=== PATIENT | male | born 1935 | race African-American/Black ===

== ENCOUNTER 2018-07-26 09:22 | Observation (INO) ==
[2018-07-26] MEDS ORDERED: SODIUM CHLORIDE 0.9% 1,000 ML IV STA (09:51)
[2018-07-26 10:26] LABS: Basophils # 0.1 10*3/uL (0.0-0.2); Basophils % 0.7 % (0.0-0.8); Eosinophils # 0.2 10*3/uL (0.0-0.87); Eosinophils % 2.5 % (0.00-10.9); Hematocrit 39.7 VOL% (42.0-52.0); Hemoglobin 12.2 GM/DL (14.0-18.0); Immature Granulocytes % 0.4 %; Immature Granulocytes Absolute 0.03 #; Lymphocytes # 1.5 10*3/uL (1.4-4.0); Lymphocytes % 21.1 % (21.2-54.2); Mean Corpuscular HGB Conc 30.7 GM/DL (32-36); Mean Corpuscular Hemoglobin 27 PG (27-34); Mean Corpuscular Volume 86.5 FL (87-102); Mean Platelet Volume 11.2 FL (9.6-12.0); Monocytes # 0.6 10*3/uL (0.11-0.8); Monocytes % 8.3 % (1.7-12.7); Neutrophils # 4.8 10*3/uL (1.4-7.4); Platelet Count 211 T/CUMM (130-400); Red Blood Count 4.59 MC/CUMM (3.8-5.5); Red Cell Distribution Width 13.8 % (9.3-17.3); White Blood Count 7.2 T/CUMM (4-12)
[2018-07-26 10:35] LABS: PT Patient Result 10.8 SECS; Partial Thromboplastin Time 28.7 SECS (0-40)
[2018-07-26 10:45] LABS: Alanine Aminotransferase 17 U/L (16-61); Alkaline Phosphatase 139 U/L (45-117); Aspartate Amino Transferase 17 U/L (0-37); Bilirubin,Total < 0.39 MG/DL (0.2-1.0); Blood Urea Nitrogen 57 MG/DL (7-18); Calcium 8.7 MG/DL (8.5-10.1); Glucose 93 MG/DL (74-106); Potassium 4.2 MMOL/L (3.5-5.1); Sodium 143 MMOL/L (136-145); Total Protein 7.4 G/DL (6.4-8.3)
[2018-07-26 10:51] LABS: Amorphous Crystals,Urine Occasional /HPF (Few); Apearance,Urine Slightly Hazy (Clear); Bilirubin,Urine Negative (Negative); Blood, Urine Negative (Negative); Glucose,Urine (UA) Negative (Negative); Ketones,Urine Negative (Negative); Mucus,Urine Occasional /LPF (Occasional); Nitrite,Urine Negative (Negative); Protein,Urine >=500 MG/DL; RBC,Urine 1 /HPF (0-4); Urine Color Yellow (Yellow); Urine Specific Gravity 1.017 (1.001-1.035); Urine Urobilinogen < 2.0 EU/DL (0.2-1.0)
[2018-07-26 10:58] LABS: Barbiturates Screen,Urine Negative (Negative); Benzodiazepines Screen,Urine Negative (Negative); Cannabinoid Screen,Urine Negative (Negative); Opiate Screen,Urine Negative (Negative); Phencyclidine Screen,Urine Negative (Negative)
[2018-07-26] MEDS ORDERED: ACETAMINOPHEN 325 MG TABLET PO PRN (13:33)
[2018-07-26] MEDS ORDERED: GLUCAGON 1 MG VIAL IM PRN (13:33)
[2018-07-26] MEDS ORDERED: DEXTROSE 50% 25 GM/50 ML VIAL IV PRN (13:33)
[2018-07-26] MEDS ORDERED: ONDANSETRON 4 MG/2 ML VIAL IV PRN (13:33)
[2018-07-26] MEDS: SODIUM CHLORIDE 23.4% CONC INJ 38.5 MEQ in STERILE WATER INJ 1,000 ML IV SCH (15:14)
[2018-07-26] MEDS: INSULIN REGULAR 100 UNIT/ML SUBCUT SCH ×2 (16:54→21:02)
[2018-07-26] MEDS: ENOXAPARIN 30 MG/0.3 ML SYRINGE SUBCUT SCH (21:02)
[2018-07-26] MEDS: SIMVASTATIN 40 MG TABLET PO SCH (21:02)
[2018-07-26] MEDS: GABAPENTIN 100 MG CAPSULE PO SCH (21:02)
[2018-07-27] MEDS: SODIUM CHLORIDE 23.4% CONC INJ 38.5 MEQ in STERILE WATER INJ 1,000 ML IV SCH ×3 (01:30→20:43)
[2018-07-27 05:05] LABS: Basophils # 0.1 10*3/uL (0.0-0.2); Basophils % 1.3 % (0.0-0.8); Eosinophils # 0.2 10*3/uL (0.0-0.87); Eosinophils % 3.8 % (0.00-10.9); Hematocrit 34.8 VOL% (42.0-52.0); Hemoglobin 10.7 GM/DL (14.0-18.0); Immature Granulocytes % 0.4 %; Immature Granulocytes Absolute 0.02 #; Lymphocytes # 1.4 10*3/uL (1.4-4.0); Lymphocytes % 25.3 % (21.2-54.2); Mean Corpuscular HGB Conc 30.7 GM/DL (32-36); Mean Corpuscular Hemoglobin 26 PG (27-34); Mean Corpuscular Volume 85.9 FL (87-102); Mean Platelet Volume 11.5 FL (9.6-12.0); Monocytes # 0.5 10*3/uL (0.11-0.8); Monocytes % 9.1 % (1.7-12.7); Neutrophils # 3.3 10*3/uL (1.4-7.4); Neutrophils % 60.1 % (38.7-73.9); Platelet Count 178 T/CUMM (130-400); Red Blood Count 4.05 MC/CUMM (3.8-5.5); Red Cell Distribution Width 13.8 % (9.3-17.3); White Blood Count 5.5 T/CUMM (4-12)
[2018-07-27 05:32] LABS: Potassium 4.1 MMOL/L (3.5-5.1)
[2018-07-27] MEDS: INSULIN REGULAR 100 UNIT/ML SUBCUT SCH ×4 (07:44→22:05)
[2018-07-27] MEDS: FINASTERIDE 5 MG TABLET PO SCH (08:40)
[2018-07-27] MEDS: TAMSULOSIN 0.4 MG CAPSULE PO SCH (08:40)
[2018-07-27] MEDS: MULTIVITAMIN (CENTRUM) TABLET PO SCH (08:41)
[2018-07-27] MEDS: GABAPENTIN 100 MG CAPSULE PO SCH ×2 (08:41→20:34)
[2018-07-27] MEDS: OMEGA 3 ACID ETHYL ESTERS 1 GM CAPSULE PO SCH (08:41)
[2018-07-27] MEDS: INSULIN GLARGINE 100 UNIT/ML SUBCUT SCH (08:42)
[2018-07-27] MEDS: ARIPiprazole 2 MG TABLET PO SCH (08:45)
[2018-07-27] MEDS: SKIN HEALING OINT (AQUAPHOR) 50 GM TUBE TOP SCH (08:54)
[2018-07-27] MEDS: ENOXAPARIN 30 MG/0.3 ML SYRINGE SUBCUT SCH (20:34)
[2018-07-27] MEDS: SIMVASTATIN 40 MG TABLET PO SCH (20:35)
[2018-07-28 07:31] VITALS: BP 158/98
[2018-07-28] MEDS: INSULIN REGULAR 100 UNIT/ML SUBCUT SCH (07:40)
[2018-07-28 08:08] LABS: Red Blood Count 4.17 MC/CUMM (3.8-5.5); White Blood Count 11.5 T/CUMM (4-12)
[2018-07-28 08:09] LABS: Basophils # 0.1 10*3/uL (0.0-0.2); Basophils % 0.4 % (0.0-0.8); Eosinophils # 0.2 10*3/uL (0.0-0.87); Eosinophils % 2.1 % (0.00-10.9); Hematocrit 34.8 VOL% (42.0-52.0); Hemoglobin 11.1 GM/DL (14.0-18.0); Immature Granulocytes % 0.6 %; Immature Granulocytes Absolute 0.07 #; Lymphocytes # 1.2 10*3/uL (1.4-4.0); Lymphocytes % 10.8 % (21.2-54.2); Mean Corpuscular HGB Conc 31.9 GM/DL (32-36); Mean Corpuscular Hemoglobin 27 PG (27-34); Mean Corpuscular Volume 83.5 FL (87-102); Mean Platelet Volume 11.5 FL (9.6-12.0); Monocytes # 0.8 10*3/uL (0.11-0.8); Monocytes % 7.2 % (1.7-12.7); Neutrophils # 9.1 10*3/uL (1.4-7.4); Neutrophils % 78.9 % (38.7-73.9); Platelet Count 188 T/CUMM (130-400); Red Cell Distribution Width 14.1 % (9.3-17.3)
[2018-07-28 08:29] LABS: Albumin 2.5 G/DL (3.4-5.0); Bilirubin,Total 0.7 MG/DL (0.2-1.0); Osmolality,Calculated 290.4 MOS/KG (273-304); Total Protein 6.3 G/DL (6.4-8.3)
[2018-07-28] MEDS: FINASTERIDE 5 MG TABLET PO SCH (09:02)
[2018-07-28] MEDS: MULTIVITAMIN (CENTRUM) TABLET PO SCH (09:02)
[2018-07-28] MEDS: ARIPiprazole 2 MG TABLET PO SCH (09:02)
[2018-07-28] MEDS: TAMSULOSIN 0.4 MG CAPSULE PO SCH (09:03)
[2018-07-28] MEDS: SKIN HEALING OINT (AQUAPHOR) 50 GM TUBE TOP SCH (09:03)
[2018-07-28] MEDS: OMEGA 3 ACID ETHYL ESTERS 1 GM CAPSULE PO SCH (09:03)
[2018-07-28] MEDS: INSULIN GLARGINE 100 UNIT/ML SUBCUT SCH (09:03)
[2018-07-28] MEDS: GABAPENTIN 100 MG CAPSULE PO SCH (09:04)
== END 2018-07-28 11:05 ==
LOC: EDBD → EDUNIT# → N.EDINP 09:22 → N.ED 09:22 → N.EDINP 11:47 → SUATTDRO 13:33 → N.2E 14:11
PROVIDERS: ADMIT Hospitalist; ATTEND Hospitalist

== ENCOUNTER 2019-02-12 18:58 | Observation (INO) ==
[2019-02-12] MEDS ORDERED: SODIUM CHLORIDE 0.9% 500 ML IV STA (19:23)
[2019-02-12 19:56] LABS: Basophils # 0.1 10*3/uL (0.0-0.2); Basophils % 0.7 % (0.0-0.8); Eosinophils # 0.3 10*3/uL (0.0-0.87); Eosinophils % 4.3 % (0.00-10.9); Hematocrit 30.9 VOL% (42.0-52.0); Hemoglobin 9.5 GM/DL (14.0-18.0); Immature Granulocytes % 0.5 %; Immature Granulocytes Absolute 0.04 #; Lymphocytes # 0.6 10*3/uL (1.4-4.0); Lymphocytes % 7.7 % (21.2-54.2); Mean Corpuscular HGB Conc 30.7 GM/DL (32-36); Mean Platelet Volume 11.2 FL (9.6-12.0); Neutrophils % 78.8 % (38.7-73.9); Platelet Count 225 T/CUMM (130-400); Red Blood Count 3.68 MC/CUMM (3.8-5.5); Red Cell Distribution Width 15.2 % (9.3-17.3); White Blood Count 7.5 T/CUMM (4-12)
[2019-02-12 20:26] LABS: Alanine Aminotransferase 24 U/L (16-61); Alkaline Phosphatase 172 U/L (45-117); Amylase 94 U/L (25-115); Aspartate Amino Transferase 20 U/L (0-37); Bilirubin,Total < 0.39 MG/DL (0.2-1.0); Blood Urea Nitrogen 60 MG/DL (7-18); Calcium 8.5 MG/DL (8.5-10.1); Estimated Glom Filtration Rate 23 ML/MIN; Glucose 162 MG/DL (74-106); Osmolality,Calculated 290.1 MOS/KG (273-304); Total Protein 8.3 G/DL (6.4-8.3)
[2019-02-12 20:45] LABS: Apearance,Urine CLOUDY (Clear); Bilirubin,Urine Negative (Negative); Blood, Urine Small mg/dL (Negative); Glucose,Urine (UA) Negative (Negative); Ketones,Urine Negative (Negative); Nitrite,Urine Negative (Negative); Protein,Urine 100 MG/DL; RBC,Urine 30 /HPF (0-4); Urine Color Yellow (Yellow); Urine Specific Gravity 1.008 (1.001-1.035); Urine Urobilinogen < 2.0 EU/DL (0.2-1.0); WBC,Urine 1283 /HPF (0-6)
[2019-02-12] MEDS ORDERED: cefTRIAXone 1,000 MG in SODIUM CHLORIDE 0.9% 100 ML IV STA (20:59)
[2019-02-12] MEDS ORDERED: MORPHINE 4 MG/1 ML VIAL IV PRN (21:25)
[2019-02-12] MEDS ORDERED: diphenhydrAMINE CAP 25 MG CAPSULE PO PRN (21:25)
[2019-02-12] MEDS ORDERED: ACETAMINOPHEN 325 MG TABLET PO PRN (21:25)
[2019-02-12] MEDS ORDERED: NICOTINE 21 MG/24 HR PATCH TRANSDERM PRN (21:25)
[2019-02-12] MEDS ORDERED: ONDANSETRON 4 MG/2 ML VIAL IV PRN (21:25)
[2019-02-12] MEDS ORDERED: BISACODYL 5 MG TABLET PO PRN (21:25)
[2019-02-12] MEDS: SODIUM CHLORIDE 0.9% 1,000 ML IV SCH (22:58)
[2019-02-13 05:15] LABS: Albumin 2.7 G/DL (3.4-5.0); Bilirubin,Total 0.4 MG/DL (0.2-1.0); Calcium 8.6 MG/DL (8.5-10.1); Osmolality,Calculated 293.3 MOS/KG (273-304); Total Protein 7.6 G/DL (6.4-8.3)
[2019-02-13] MEDS: SODIUM CHLORIDE 0.9% 1,000 ML IV SCH ×3 (07:12→22:16)
[2019-02-13] MEDS ORDERED: SIMVASTATIN 40 MG TABLET PO SCH (20:00)
[2019-02-13] MEDS ORDERED: traZODone 50 MG TABLET PO SCH (20:00)
[2019-02-13] MEDS: GABAPENTIN 100 MG CAPSULE PO SCH (20:15)
[2019-02-13] MEDS ORDERED: cefTRIAXone 1,000 MG in SYRINGE 1 EACH IV SCH (21:00)
[2019-02-14] MEDS: SODIUM CHLORIDE 0.9% 1,000 ML IV SCH ×3 (05:42→15:45)
[2019-02-14 05:53] LABS: Basophils % 1.3 % (0.0-0.8); Eosinophils # 0.4 10*3/uL (0.0-0.87); Eosinophils % 14.2 % (0.00-10.9); Hematocrit 28.8 VOL% (42.0-52.0); Hemoglobin 8.9 GM/DL (14.0-18.0); Immature Granulocytes % 0.3 %; Immature Granulocytes Absolute 0.01 #; Lymphocytes # 0.5 10*3/uL (1.4-4.0); Lymphocytes % 17.8 % (21.2-54.2); Mean Corpuscular HGB Conc 30.9 GM/DL (32-36); Mean Corpuscular Volume 85.5 FL (87-102); Mean Platelet Volume 11.1 FL (9.6-12.0); Monocytes % 9.6 % (1.7-12.7); Neutrophils % 56.8 % (38.7-73.9); Platelet Count 193 T/CUMM (130-400); Red Blood Count 3.37 MC/CUMM (3.8-5.5); Red Cell Distribution Width 15.7 % (9.3-17.3)
[2019-02-14 06:19] LABS: Eosinophils 15 % (0-10); Lymphocytes 8 % (20-55); Platelet Estimate Decreased; Polychromasia Few; Segmented Neutrophils 72 % (50-85); Total Cells Counted 100
[2019-02-14 06:26] LABS: Calcium 7.9 MG/DL (8.5-10.1)
[2019-02-14] MEDS ORDERED: TAMSULOSIN 0.4 MG CAPSULE PO SCH (08:00)
[2019-02-14] MEDS ORDERED: MAGNESIUM HYDROXIDE SUSP 30 ML UDCUP PO SCH (08:00)
[2019-02-14] MEDS ORDERED: BICALUTAMIDE 50 MG TABLET PO SCH (08:00)
[2019-02-14] MEDS ORDERED: ARIPiprazole 2 MG TABLET PO SCH (08:00)
[2019-02-14] MEDS ORDERED: FINASTERIDE 5 MG TABLET PO SCH (08:00)
[2019-02-14] MEDS ORDERED: INSULIN GLARGINE 100 UNIT/ML SUBCUT SCH (09:00)
[2019-02-14] MEDS: GABAPENTIN 100 MG CAPSULE PO SCH (09:33)
[2019-02-14] MEDS ORDERED: SKIN HEALING OINT (AQUAPHOR) 50 GM TUBE TOP PRN (13:56)
[2019-02-14 15:26] VITALS: BP 117/72
== END 2019-02-14 15:35 ==
LOC: EDBD → EDUNIT# → N.ED 18:58 → N.EDINP 18:58 → N.5E 21:43
PROVIDERS: ADMIT Hospitalist; ATTEND Hospitalist

== ENCOUNTER 2019-02-26 12:09 | Inpatient (IN) ==
[2019-02-26 12:47] LABS: Basophils % 0.7 % (0.0-0.8); Eosinophils # 0.5 10*3/uL (0.0-0.87); Eosinophils % 11.5 % (0.00-10.9); Hematocrit 31.9 VOL% (42.0-52.0); Hemoglobin 9.7 GM/DL (14.0-18.0); Immature Granulocytes % 0.2 %; Immature Granulocytes Absolute 0.01 #; Lymphocytes % 25.6 % (21.2-54.2); Mean Corpuscular HGB Conc 30.4 GM/DL (32-36); Mean Corpuscular Volume 85.3 FL (87-102); Mean Platelet Volume 11.7 FL (9.6-12.0); Monocytes % 9.8 % (1.7-12.7); Neutrophils % 52.2 % (38.7-73.9); Platelet Count 160 T/CUMM (130-400); Red Blood Count 3.74 MC/CUMM (3.8-5.5); Red Cell Distribution Width 16.7 % (9.3-17.3); White Blood Count 4.1 T/CUMM (4-12)
[2019-02-26 13:07] LABS: Alanine Aminotransferase 92 U/L (16-61); Albumin 2.8 G/DL (3.4-5.0); Alkaline Phosphatase 293 U/L (45-117); Aspartate Amino Transferase 93 U/L (0-37); Bilirubin,Total < 0.39 MG/DL (0.2-1.0); Blood Urea Nitrogen 49 MG/DL (7-18); Calcium 8.5 MG/DL (8.5-10.1); Estimated Glom Filtration Rate 21 ML/MIN; Glucose 75 MG/DL (74-106); Osmolality,Calculated 286.7 MOS/KG (273-304)
[2019-02-26 13:09] LABS: Apearance,Urine CLEAR (Clear); Bilirubin,Urine Negative (Negative); Blood, Urine Negative (Negative); Glucose,Urine (UA) Negative (Negative); Ketones,Urine Negative (Negative); Nitrite,Urine Negative (Negative); Protein,Urine 100 MG/DL; RBC,Urine 8 /HPF (0-4); Urine Color Yellow (Yellow); Urine Specific Gravity 1.011 (1.001-1.035); Urine Urobilinogen < 2.0 EU/DL (0.2-1.0); WBC,Urine <1 /HPF (0-6)
[2019-02-26] MEDS ORDERED: LEVOFLOXACIN INJ 500 MG in PREMIX 1 EACH IV STA (13:24)
[2019-02-26 13:28] LABS: Atypical Lymphocytes Few; Burr Cells Few; Eosinophils 13 % (0-10); Hypochromasia 2+; Lymphocytes 29 % (20-55); Microcytosis 1+; Ovalocytes Few; Polychromasia Slight; Segmented Neutrophils 55 % (50-85); Total Cells Counted 100
[2019-02-26 13:29] LABS: Helmet Cells Slight
[2019-02-26] MEDS ORDERED: DOCUSATE SODIUM 100 MG CAPSULE PO PRN (14:40)
[2019-02-26] MEDS ORDERED: LACTULOSE 20 GM/30 ML UDCUP PO PRN (14:40)
[2019-02-26] MEDS ORDERED: ONDANSETRON 4 MG/2 ML VIAL IV PRN (14:40)
[2019-02-26] MEDS ORDERED: CALCIUM GLUCONATE 1,000 MG in SODIUM CHLORIDE 0.9% 100 ML IV ONE (16:55)
[2019-02-26] MEDS ORDERED: GLUCAGON 1 MG VIAL IM PRN (16:58)
[2019-02-26] MEDS ORDERED: SODIUM POLYSTYRENE SULFATE 15 GM/60 ML BOTTLE PO ONE (17:17)
[2019-02-26] MEDS: DEXTROSE 10% 250 ML BAG IV PRN (17:20)
[2019-02-26] MEDS: DEXTROSE 5% NACL 0.45% 1,000 ML IV SCH (18:03)
[2019-02-26] MEDS ORDERED: DEXTROSE 50% 25 GM/50 ML VIAL IV PRN (18:09)
[2019-02-26] MEDS ORDERED: SODIUM POLYSTYRENE SULFATE 15 GM/60 ML BOTTLE RECTAL ONE (20:59)
[2019-02-26] MEDS: ENOXAPARIN 30 MG/0.3 ML SYRINGE SUBCUT SCH (22:17)
[2019-02-26] MEDS: INSULIN REGULAR 100 UNIT/ML SUBCUT SCH (22:17)
[2019-02-27 03:25] LABS: Basophils % 0.5 % (0.0-0.8); Eosinophils # 0.2 10*3/uL (0.0-0.87); Eosinophils % 5.3 % (0.00-10.9); Hematocrit 29.8 VOL% (42.0-52.0); Immature Granulocytes % 0.2 %; Immature Granulocytes Absolute 0.01 #; Lymphocytes # 0.6 10*3/uL (1.4-4.0); Lymphocytes % 15.2 % (21.2-54.2); Mean Corpuscular HGB Conc 30.2 GM/DL (32-36); Mean Corpuscular Volume 85.4 FL (87-102); Mean Platelet Volume 11.5 FL (9.6-12.0); Monocytes % 6.5 % (1.7-12.7); Neutrophils % 72.3 % (38.7-73.9); Platelet Count 145 T/CUMM (130-400); Red Blood Count 3.49 MC/CUMM (3.8-5.5); Red Cell Distribution Width 16.9 % (9.3-17.3); White Blood Count 4.2 T/CUMM (4-12)
[2019-02-27 04:01] LABS: Albumin 2.5 G/DL (3.4-5.0); Osmolality,Calculated 287.5 MOS/KG (273-304); Thyroid Stimulating Hormone 8.47 uIU/ml (0.358-3.74); Total Protein 7.1 G/DL (6.4-8.3)
[2019-02-27] MEDS: DEXTROSE 10% 250 ML BAG IV PRN (05:46)
[2019-02-27] MEDS: INSULIN REGULAR 100 UNIT/ML SUBCUT SCH ×4 (08:00→21:38)
[2019-02-27] MEDS: DEXTROSE 5% NACL 0.45% 1,000 ML IV SCH ×2 (08:38→23:14)
[2019-02-27] MEDS: PANTOPRAZOLE 40 MG TABLET PO SCH (08:48)
[2019-02-27] MEDS ORDERED: LEVOFLOXACIN INJ 250 MG in PREMIX 1 EACH IV SCH (09:00)
[2019-02-27] MEDS ORDERED: SODIUM POLYSTYRENE SULFATE 15 GM/60 ML BOTTLE PO ONE (10:00)
[2019-02-27] MEDS: SKIN HEALING OINT (AQUAPHOR) 50 GM TUBE TOP SCH (12:06)
[2019-02-27] MEDS: ENOXAPARIN 30 MG/0.3 ML SYRINGE SUBCUT SCH (21:41)
[2019-02-28 05:03] LABS: Eosinophils # 0.4 10*3/uL (0.0-0.87); Eosinophils % 11.9 % (0.00-10.9); Hematocrit 30.3 VOL% (42.0-52.0); Hemoglobin 9.2 GM/DL (14.0-18.0); Immature Granulocytes % 0.3 %; Immature Granulocytes Absolute 0.01 #; Lymphocytes # 0.6 10*3/uL (1.4-4.0); Lymphocytes % 20.3 % (21.2-54.2); Mean Corpuscular HGB Conc 30.4 GM/DL (32-36); Mean Corpuscular Volume 85.4 FL (87-102); Mean Platelet Volume 11.6 FL (9.6-12.0); Monocytes % 9.6 % (1.7-12.7); Neutrophils % 56.9 % (38.7-73.9); Platelet Count 166 T/CUMM (130-400); Red Blood Count 3.55 MC/CUMM (3.8-5.5); Red Cell Distribution Width 16.8 % (9.3-17.3); White Blood Count 3.1 T/CUMM (4-12)
[2019-02-28 05:28] LABS: Eosinophils 15 % (0-10); Hypochromasia 1+; Lymphocytes 23 % (20-55); Ovalocytes Slight; Platelet Estimate Adequate; Segmented Neutrophils 55 % (50-85); Total Cells Counted 100
[2019-02-28 05:29] LABS: Burr Cells Slight; Microcytosis Slight
[2019-02-28 05:37] LABS: Alanine Aminotransferase 87 U/L (16-61); Albumin 2.3 G/DL (3.4-5.0); Alkaline Phosphatase 267 U/L (45-117); Aspartate Amino Transferase 88 U/L (0-37); Bilirubin,Total < 0.39 MG/DL (0.2-1.0); Blood Urea Nitrogen 44 MG/DL (7-18); Estimated Glom Filtration Rate 22 ML/MIN; Glucose 79 MG/DL (74-106); Osmolality,Calculated 288.4 MOS/KG (273-304)
[2019-02-28] MEDS ORDERED: LEVOTHYROXINE 50 MCG TABLET PO SCH (06:30)
[2019-02-28] MEDS: INSULIN REGULAR 100 UNIT/ML SUBCUT SCH ×3 (06:56→15:54)
[2019-02-28] MEDS ORDERED: AMOXICILLIN/CLAV 500 MG TABLET PO SCH (09:00)
[2019-02-28] MEDS: PANTOPRAZOLE 40 MG TABLET PO SCH (09:44)
[2019-02-28] MEDS: DEXTROSE 5% NACL 0.45% 1,000 ML IV SCH ×3 (09:59→13:49)
[2019-02-28] MEDS: SKIN HEALING OINT (AQUAPHOR) 50 GM TUBE TOP SCH (11:33)
[2019-02-28 15:41] VITALS: BP 172/75
[2019-02-28] MEDS ORDERED: PIPERACILLIN/TAZOBACTAM 3,375 MG in SODIUM CHLORIDE 0.9% 100 ML IV SCH (21:00)
== END 2019-02-28 17:38 | DRG 193 ==
LOC: EDBD → EDUNIT# → N.ED 12:09 → N.EDINP 14:34 → N.2E 15:40
PROVIDERS: ADMIT Internal Medicine; ATTEND Internal Medicine

== ENCOUNTER 2019-03-23 19:12 | Inpatient (IN) ==
[2019-03-23] MEDS ORDERED: DOPamine 800 MG/250 ML PREMIX IV ONE (19:31)
[2019-03-23] MEDS ORDERED: ATROPINE 1 MG/10 ML SYRINGE ONE ×2 (19:36→19:37)
[2019-03-23] MEDS: DOPamine 800 MG/250 ML PREMIX IV PRN (19:39)
[2019-03-23] MEDS ORDERED: ATROPINE 1 MG/10 ML SYRINGE IV ONE (19:39)
[2019-03-23 19:48] LABS: ABG Base Excess -12.1 MMOL/L (-2.5-2.5); ABG HCO3 14.8 MMOL/L (20-26); ABG Oxygen Saturation 95.3 % (95-100); ABG PCO2 39.4 MM HG (35-48); ABG PO2 89.3 MM HG (80-95); ABG TCO2 14.6 MMOL/L (23-27)
[2019-03-23 19:50] LABS: ABG PH 7.196 (7.35-7.45)
[2019-03-23] MEDS ORDERED: SODIUM CHLORIDE 0.9% 1,000 ML IV STA ×2 (19:50→19:54)
[2019-03-23] MEDS ORDERED: SODIUM CHLORIDE 0.9% 500 ML IV STA (19:54)
[2019-03-23] MEDS ORDERED: PIPERACILLIN/TAZOBACTAM 3,375 MG in SODIUM CHLORIDE 0.9% 100 ML IV STA (19:56)
[2019-03-23] MEDS ORDERED: SODIUM BICARBONATE 50 MEQ/50 ML VIAL IV ONE (20:02)
[2019-03-23 20:10] LABS: Eosinophils % 0.3 % (0.00-10.9); Hematocrit 29.1 VOL% (42.0-52.0); Hemoglobin 9.3 GM/DL (14.0-18.0); Immature Granulocytes % 0.6 %; Immature Granulocytes Absolute 0.02 #; Lymphocytes # 0.2 10*3/uL (1.4-4.0); Lymphocytes % 6.2 % (21.2-54.2); Mean Corpuscular Volume 82.9 FL (87-102); Mean Platelet Volume 12.2 FL (9.6-12.0); Monocytes % 5.6 % (1.7-12.7); Neutrophils % 87.3 % (38.7-73.9); Platelet Count 128 T/CUMM (130-400); Red Blood Count 3.51 MC/CUMM (3.8-5.5); Red Cell Distribution Width 17.2 % (9.3-17.3); White Blood Count 3.4 T/CUMM (4-12)
[2019-03-23] MEDS ORDERED: SODIUM BICARBONATE 50 MEQ/50 ML VIAL IV STA (20:17)
[2019-03-23 20:19] LABS: INR 1.1; PT Patient Result 11.4 SECS (9.6-12.2)
[2019-03-23 20:23] LABS: Apearance,Urine CLOUDY (Clear); Bacteria,Urine Occasional /HPF (Few); Bilirubin,Urine Negative (Negative); Blood, Urine Negative (Negative); Glucose,Urine (UA) Negative (Negative); Ketones,Urine Negative (Negative); Mucus,Urine Occasional /LPF (Occasional); Nitrite,Urine Negative (Negative); Protein,Urine 100 MG/DL; RBC,Urine 143 /HPF (0-4); Squamous Epithelial Cell,Urine Occasional /HPF (0-10); Urine Specific Gravity 1.018 (1.001-1.035); Urine Urobilinogen < 2.0 EU/DL (0.2-1.0); WBC,Urine 20 /HPF (0-6)
[2019-03-23 20:24] LABS: Urine Color Dark yellow (Yellow)
[2019-03-23 20:27] LABS: Alanine Aminotransferase 26 U/L (16-61); Alkaline Phosphatase 154 U/L (45-117); Aspartate Amino Transferase 25 U/L (0-37); Bilirubin,Total < 0.39 MG/DL (0.2-1.0); Blood Urea Nitrogen 75 MG/DL (7-18); Calcium 7.8 MG/DL (8.5-10.1); Estimated Glom Filtration Rate 17 ML/MIN; Glucose 54 MG/DL (74-106); Total Protein 6.1 G/DL (6.4-8.3)
[2019-03-23] MEDS ORDERED: SODIUM BICARB INJ 50 MEQ in SODIUM CHLORIDE 0.45% 1,000 ML IV SCH (20:30)
[2019-03-23 20:32] LABS: Burr Cells 1+; Hypochromasia 1+; Lymphocytes 6 % (20-55); Macrocytosis 1+; Platelet Estimate Adequate; Segmented Neutrophils 88 % (50-85)
[2019-03-23 20:33] LABS: Schistocytes Slight; Total Cells Counted 100
[2019-03-23] MEDS ORDERED: INSULIN REGULAR 100 UNIT/ML IV STA (20:39)
[2019-03-23] MEDS ORDERED: DEXTROSE 50% 25 GM/50 ML VIAL IV STA (20:39)
[2019-03-23] MEDS ORDERED: DEXTROSE 50% 25 GM/50 ML SYRINGE IV ONE (21:08)
[2019-03-23 21:13] LABS: ABG Base Excess -12.2 MMOL/L (-2.5-2.5); ABG HCO3 15.8 MMOL/L (20-26); ABG Oxygen Saturation 97.7 % (95-100); ABG PCO2 44.6 MM HG (35-48); ABG PO2 119.9 MM HG (80-95); ABG TCO2 17.2 MMOL/L (23-27)
[2019-03-23 21:18] LABS: ABG PH 7.167 (7.35-7.45)
[2019-03-23] MEDS ORDERED: ETOMIDATE 20 MG/10 ML VIAL IV ONE ×2 (21:46→22:00)
[2019-03-23] MEDS ORDERED: VECURONIUM 10 MG VIAL IV ONE ×3 (21:47→22:00)
[2019-03-23] MEDS ORDERED: DEXTROSE 5% NACL 0.9% 1,000 ML IV SCH (23:30)
[2019-03-23 23:34] LABS: ABG Base Excess -14.2 MMOL/L (-2.5-2.5); ABG HCO3 13.5 MMOL/L (20-26); ABG Oxygen Saturation 95.3 % (95-100); ABG PCO2 54.3 MM HG (35-48); ABG TCO2 15.4 MMOL/L (23-27); Allen Test Positive; Pt O2 Delivery Device Ventilator
[2019-03-23 23:37] LABS: ABG PH 7.078 (7.35-7.45)
[2019-03-23] MEDS ORDERED: VANCOMYCIN INJ 1,000 MG in SODIUM CHLORIDE 0.9% 250 ML IV PRN (23:38)
[2019-03-24] MEDS ORDERED: SODIUM BICARBONATE 50 MEQ/50 ML VIAL IV ONE (00:04)
[2019-03-24] MEDS ORDERED: SODIUM POLYSTYRENE SULFATE 15 GM/60 ML BOTTLE NG ONE (00:30)
[2019-03-24] MEDS: HEPARIN 5,000 UNIT/1 ML VIAL SUBCUT SCH ×3 (00:36→23:41)
[2019-03-24] MEDS: MEROPENEM 500 MG in SODIUM CHLORIDE 0.9% 100 ML IV SCH ×3 (00:37→23:41)
[2019-03-24] MEDS ORDERED: SODIUM BICARB INJ 100 MEQ in DEXTROSE 5% NACL 0.9% 1,000 ML IV SCH (01:30)
[2019-03-24] MEDS ORDERED: VANCOMYCIN INJ 2,000 MG in SODIUM CHLORIDE 0.9% 500 ML IV ONE (01:30)
[2019-03-24] MEDS: AZITHROMYCIN INJ 500 MG in SODIUM CHLORIDE 0.9% 250 ML IV SCH (02:05)
[2019-03-24] MEDS: DOPamine 800 MG/250 ML PREMIX IV PRN ×5 (03:01→20:04)
[2019-03-24 04:35] LABS: ABG Base Excess -8.3 MMOL/L (-2.5-2.5); ABG HCO3 17.7 MMOL/L (20-26); ABG Oxygen Saturation 94.7 % (95-100); ABG PCO2 40.9 MM HG (35-48); ABG PO2 79.7 MM HG (80-95); Allen Test Positive; Pt O2 Delivery Device Ventilator
[2019-03-24 04:43] LABS: Basophils % 0.2 % (0.0-0.8); Hematocrit 32.2 VOL% (42.0-52.0); Hemoglobin 10.3 GM/DL (14.0-18.0); Immature Granulocytes % 0.4 %; Immature Granulocytes Absolute 0.02 #; Lymphocytes # 0.1 10*3/uL (1.4-4.0); Lymphocytes % 1.8 % (21.2-54.2); Mean Corpuscular Volume 82.1 FL (87-102); Mean Platelet Volume 11.4 FL (9.6-12.0); Monocytes % 7.7 % (1.7-12.7); NRBC # 0.03 10*3/uL; Neutrophils % 89.9 % (38.7-73.9); Platelet Count 152 T/CUMM (130-400); Red Blood Count 3.92 MC/CUMM (3.8-5.5); Red Cell Distribution Width 17.2 % (9.3-17.3)
[2019-03-24 05:06] LABS: Band Neutrophils 9 % (0-10); Burr Cells Slight; Hypochromasia 1+; Lymphocytes 1 % (20-55); Myelocytes 1 %; Ovalocytes Slight; Platelet Estimate Adequate; Segmented Neutrophils 86 % (50-85); Total Cells Counted 100
[2019-03-24 05:14] LABS: Albumin 1.8 G/DL (3.4-5.0); Bilirubin,Total 0.5 MG/DL (0.2-1.0); Calcium 7.6 MG/DL (8.5-10.1); Osmolality,Calculated 294.5 MOS/KG (273-304); Total Protein 6.7 G/DL (6.4-8.3)
[2019-03-24] MEDS: DEXTROSE 10% 250 ML BAG IV PRN ×2 (05:24→11:04)
[2019-03-24] MEDS ORDERED: NOREPINEPHRINE 4 MG/4 ML VIAL IV ONE (07:26)
[2019-03-24] MEDS ORDERED: NOREPINEPHRINE 8 MG in SODIUM CHLORIDE 0.9% 242 ML IV PRN (07:27)
[2019-03-24] MEDS ORDERED: SODIUM CHLORIDE 0.9% 1,000 ML IV ONE (07:27)
[2019-03-24] MEDS ORDERED: LORazepam 2 MG/1 ML VIAL IV ONE ×2 (07:35→08:00)
[2019-03-24] MEDS: PROPOFOL 1,000 MG/100 ML BOTTLE IV SCH ×2 (07:37→23:42)
[2019-03-24] MEDS ORDERED: LORazepam 2 MG/1 ML VIAL ONE ×2 (07:45→08:02)
[2019-03-24] MEDS: HYDROCORTISONE 100 MG VIAL IV SCH ×4 (08:04→23:41)
[2019-03-24] MEDS: SODIUM BICARB INJ 100 MEQ in DEXTROSE 5% NACL 0.45% 1,000 ML IV SCH (11:15)
[2019-03-25] MEDS: AZITHROMYCIN INJ 500 MG in SODIUM CHLORIDE 0.9% 250 ML IV SCH (00:10)
[2019-03-25] MEDS: LORazepam 2 MG/1 ML VIAL IV PRN (04:04)
[2019-03-25 04:37] LABS: ABG Base Excess -9.7 MMOL/L (-2.5-2.5); ABG HCO3 16.6 MMOL/L (20-26); ABG Oxygen Saturation 98.6 % (95-100); ABG PCO2 34.7 MM HG (35-48); ABG PH 7.279 (7.35-7.45); ABG TCO2 15.1 MMOL/L (23-27)
[2019-03-25 04:45] LABS: Basophils # 0.1 10*3/uL (0.0-0.2); Basophils % 0.3 % (0.0-0.8); Hematocrit 31.1 VOL% (42.0-52.0); Hemoglobin 9.9 GM/DL (14.0-18.0); Immature Granulocytes % 1.7 %; Immature Granulocytes Absolute 0.35 #; Lymphocytes # 0.3 10*3/uL (1.4-4.0); Lymphocytes % 1.4 % (21.2-54.2); Mean Corpuscular HGB Conc 31.8 GM/DL (32-36); Mean Corpuscular Volume 82.3 FL (87-102); Mean Platelet Volume 10.9 FL (9.6-12.0); Monocytes % 3.7 % (1.7-12.7); NRBC # 0.12 10*3/uL; Neutrophils % 92.9 % (38.7-73.9); Red Blood Count 3.78 MC/CUMM (3.8-5.5); Red Cell Distribution Width 17.1 % (9.3-17.3); White Blood Count 20.2 T/CUMM (4-12)
[2019-03-25 04:46] LABS: Platelet Count 110 T/CUMM (130-400)
[2019-03-25 05:01] LABS: Calcium 6.9 MG/DL (8.5-10.1)
[2019-03-25 05:02] LABS: Band Neutrophils 5 % (0-10); Lymphocytes 9 % (20-55); Nucleated Red Blood Cells 1 (0-5); Segmented Neutrophils 77 % (50-85); Total Cells Counted 100
[2019-03-25 05:03] LABS: Platelet Estimate Decreased; Polychromasia Few
[2019-03-25] MEDS ORDERED: DEXTROSE 50% 25 GM, SODIUM BICARB INJ 50 MEQ, INSULIN REGULAR 10 UNIT in SODIUM CHLORID... IV ONE (06:00)
[2019-03-25] MEDS: SODIUM BICARB INJ 100 MEQ in DEXTROSE 5% NACL 0.45% 1,000 ML IV SCH (07:10)
[2019-03-25] MEDS: DOPamine 800 MG/250 ML PREMIX IV PRN (08:10)
[2019-03-25] MEDS: HYDROCORTISONE 100 MG VIAL IV SCH (08:14)
[2019-03-25] MEDS ORDERED: MORPHINE 4 MG/1 ML VIAL ONE (11:01)
[2019-03-25] MEDS: MORPHINE 4 MG/1 ML VIAL IV PRN ×6 (11:03→23:20)
[2019-03-26] MEDS: MORPHINE 4 MG/1 ML VIAL IV PRN ×3 (02:04→08:18)
[2019-03-27 16:21] VITALS: BP 89/42
[2019-03-27] MEDS: MORPHINE 4 MG/1 ML VIAL IV PRN (16:22)
[2019-03-27] MEDS: LORazepam 2 MG/1 ML VIAL IV PRN (18:45)
== END 2019-03-27 20:48 | disposition expired | DRG 871 ==
LOC: N.ED 19:12 → N.EDINP 21:28 → SUATTDRO 21:28 → N.CC 21:41 → N.3E 03-26 10:12
PROVIDERS: ADMIT Internal Medicine; ATTEND Internal Medicine